=== PATIENT | male | born 1965 | race Caucasian/White ===

== ENCOUNTER 2017-05-01 07:24 | Emergency (ER) | payer BC ==
[2017-05-01 07:33] VITALS: BP 153/82; BMI 40.7
[2017-05-01] MEDS ORDERED: NS 1000 ML 1,000 ML IV ONE (08:46)
--- NOTE | 2017-05-01 08:47 | DR.GENAD ---
HPI - PCP Primary Care Physician: LIANNA ARMENDARIZ - HPI Comment HPI Comment: PATIENT HAVE FEVER ON AND OFF. HAD 13 BM YESTERDAY. NO VOMITING. - Complaint/Symptoms Chief Complaint Doctors Comments: ABDOMINAL PAIN, DIARRHEA, DECREASE URINE OUTPUT TIMES ONE WEEK. DARK STOOL TIMES 2 DAYS. Chief Complaint:: "STOMACH PAIN SEVERE CRAMPS AND DIERIA OVER A WEEK NOW" HAVING A HARD TIME URINATING ALSO. PT HAS 13 RUNNY BM YESTERDAY THEY LOOK LIKE COFFEE GROUNDS - Nurses notes reviewed Nurses Notes Review: Yes - Source History Provided: Patient - Mode of Arrival Mode of Arrival: Ambulatory - Timing Onset of Chief Complaint: 04/19/17 Came on: Gradually - Duration Duration: Constant Duration: Days - Severity Severity: Moderate PMH - PMH Past Medical History: Yes Past Medical History: Diabetes, GERD, Hypertension Past Surgical History: Yes Surgical History: Ortho Surgery Past Surgical History Comment: RIGHT SHOULDER SURGER - Family History History of Family Medical Conditions: Yes Family Medical History: Diabetes Mellitus, Cancer, Heart Failure, Hypertension - Social History Does patient currently use any type of tobacco product: Yes Have you used tobacco products in the last 12 months: Yes Type of Tobacco Use: Cigars How many years tobacco product used: 25 Does any household member use tobacco: No Alcohol Use: Rarely Do you use any recreational Drugs:: No Lives With: Family Lives Where: Home - infectious screening In the last 2 months have you had wt loss of >10#?: NO Have you had fever, night sweats or hemotysis?: No Have you traveled outside the country in the last 6 months?: No Isolation: Standard ROS - Review of Systems Constitutional: Fever, Weakness, Fatigue. negative: Chills, Diaphoresis Eyes: No Symptoms Reported. negative: Eye Pain, Discharge ENTM: negative: Ear Pain, Nose Discharge, Nose Congestion, Throat Pain Respiratoy: No Symptoms Reported. negative: Productive Cough, Non-Productive Cough, Short of Breath, Wheezing, Hemoptysis Cardiovascular: No Symptoms Reported. negative: Chest Pain, Edema, Palpitations Gastrointestinal/Abdominal: Abdominal Pain, Diarrhea Genitourinary: Other (DECREASE URINE OUTPUT.). negative: Dysuria, Frequency, Hematuria Neurological: Weakness. negative: Headache, Dizziness Musculoskeletal: Muscle Pain Integumentary: No Symptoms Reported Hematologic/Lymphatic: No Symptoms Reported Endocrine: No Symptoms Reported All Other Systems: Reviewed and Negative PE - Vital Signs Vitals: Temperature 99 F Pulse Rate 85 Respiratory Rate 20 Blood Pressure 153/82 O2 Sat by Pulse Oximetry 99 - General Limitations: No Limitations General Appearance: Alert - Head Head Exam: Normal Inspection - Eyes Eye exam: Normal Appearance - ENT ENT Exam: Normal External Ear Exam External Ear Exam: Normal External Inspection TM/Canal Exam: Bilateral Normal Nose Exam: Normal Nose Exam Mouth Exam: Normal Inspection Throat Exam: Normal Inspection - Neck Neck Exam: Trachea Midline - Chest Chest Inspection: Symmetric Chest Wall Rise - Respiratory Respiratory Exam: Normal Lung Sounds Bilat Respiratory Exam: Bilateral Clear to Auscultation - Cardiovascular Cardiovascular Exam: Regular Rate, Normal Rhythm, Normal Heart Sounds - Abdominal Exam Abdominal Exam: Normal Bowel Sounds, Soft, Tenderness Abdominal Tenderness: Diffuse, Moderate - Extremities Extremities Exam: Normal Inspection - Back Back Exam: Normal Inspection - Neurologic Neurological Exam: Alert, Oriented X3 - Psychiatric Psychiatric Exam: Normal Affect, Normal Mood - Skin Skin Exam: Dry MDM - Additional Information Additional Information Obtained From: Family - Differential Diagnosis Differential Diagnosis: ABD PAIN, DIVERTICULITIS, BOWEL OBST, GI BLEED, GASTROENTERITIS. UTI. DIARR Course - Treatment Treatment: SEE ORDERS. IV NS 1L BOLUS IN ED. - Education/Counseling Education/Counseling: Patient, Family, Education Educated On: Treatment, Diagnosis, Needs for Follow Up ROR - Labs Reviewed Laboratory Results Reviewed?: Yes Result Diagrams: 05/01/17 08:52 05/01/17 08:52 Laboratory: 05/01/17 10:55 Stool Stool Culture - Final Campylobacter Species 05/01/17 10:55 Stool - Final WBC 5.3 X10^3/uL (3.6-10.0) 05/01/17 08:52 RBC 4.33 X10^6/uL (4.7-6.0) L 05/01/17 08:52 Hgb 13.2 g/dL (13.5-18.0) L 05/01/17 08:52 Hct 37.5 % (42.0-54.0) L 05/01/17 08:52 MCV 86.8 fL (80.0-100.0) 05/01/17 08:52 MCH 30.6 pg (27.0-34.0) 05/01/17 08:52 MCHC 35.3 g/dL (33.0-35.0) H 05/01/17 08:52 RDW 13.9 % (11.6-16.5) 05/01/17 08:52 Plt Count 132 X10^3/uL (150.0-450.0) L 05/01/17 08:52 MPV 7.4 fL (7.4-11.0) 05/01/17 08:52 Neut % 70.1 % (42.0-75.0) 05/01/17 08:52 Lymph % 17.6 % (21.0-51.0) L 05/01/17 08:52 [place] % 10.6 % (0.0-13.0) 05/01/17 08:52 Eos % 1.4 % (0.9-2.9) 05/01/17 08:52 Baso % 0.3 % (0.2-1.0) 05/01/17 08:52 Neut # 3.7 x10^3/uL (2.2-4.8) 05/01/17 08:52 Lymph # 0.9 X10^3/uL (1.3-2.9) L 05/01/17 08:52 [place] # 0.6 x10^3/uL (0.3-0.8) 05/01/17 08:52 Eos # 0.1 x10^3/uL (0.0-0.2) 05/01/17 08:52 Baso # 0.0 X10^3/uL (0.0-0.1) 05/01/17 08:52 Absolute Nucleated RBC 0.0 /100WBC 05/01/17 08:52 Sodium 135 mmol/L (136-145) L 05/01/17 08:52 Corrected Sodium 138 mmol/L (136-145) 05/01/17 08:52 Potassium 3.5 mmol/L (3.5-5.1) 05/01/17 08:52 Chloride 101 mmol/L (98-107) 05/01/17 08:52 Carbon Dioxide 29.1 mmol/L (21-32) 05/01/17 08:52 BUN 10 mg/dL (7-18) 05/01/17 08:52 Creatinine 1.12 mg/dL (0.70-1.30) 05/01/17 08:52 Est GFR (MDRD) Af Amer > 60 (>60) 05/01/17 08:52 Est GFR (MDRD) Non-Af > 60 (>60) 05/01/17 08:52 Glucose 205 mg/dL (65-99) H 05/01/17 08:52 Calcium 8.3 mg/dL (8.5-10.1) L 05/01/17 08:52 Corrected Calcium 9.2 mg/dL (8.5-10.1) 05/01/17 08:52 Total Bilirubin 0.40 mg/dL (0.2-1.0) 05/01/17 08:52 AST 23 Units/L (15-37) 05/01/17 08:52 ALT 34 Units/L (12-78) 05/01/17 08:52 Alkaline Phosphatase 81 Units/L (46-116) 05/01/17 08:52 Total Protein 6.9 g/dL (6.4-8.2) 05/01/17 08:52 Albumin 2.9 g/dL (3.4-5.0) L 05/01/17 08:52 Globulin 4.0 g/dL (2.5-4.5) 05/01/17 08:52 Albumin/Globulin Ratio 0.7 Ratio (1.1-2.1) L 05/01/17 08:52 Amylase 39 Units/L (25-115) 05/01/17 08:52 Lipase 157 Units/L (73-393) 05/01/17 08:52 Stool Description 60 grams liquid 05/01/17 10:55 Stl Occult Blood (IFOB) Positive (NEGATIVE) A 05/01/17 10:55 Stool for White Cells Many (None) 05/01/17 10:55 Stl C. diff Tox B Gene Negative (NEGATIVE) 05/01/17 10:55 Stl C. diff [id number] Negative (NEGATIVE) 05/01/17 10:55 Acetone, Semi-Quant Negative (NEGATIVE) 05/01/17 08:52 - XRAY XRAY Findings: REPORT DISCUSS WITH PATIENT. - Diagnosis Discharge Problem: Bloody diarrhea Abdominal pain Qualifiers: Abdominal location: generalized Qualified Code(s): R10.84 - Generalized abdominal pain GI bleed Qualifiers: GI bleed type/associated pathology: melena Qualified Code(s): K92.1 - Melena - Discharge Plan Disposition: 01 HOME, SELF-CARE Condition: Stable Prescriptions: Acetaminophen with Codeine [Tylenol/Codeine #3 300-30 mg] 1 tab PO Q6H PRN #15 tab PRN Reason: Pain Ciprofloxacin HCl [CIPRO 500 MG TAB *] 500 mg PO Q12H #20 tab Diphenoxylate/Atropine [Lomotil] 1 tab PO TID PRN #15 tab PRN Reason: Metronidazole [Flagyl Tab 500 mg] 500 mg PO TID #30 tab Ranitidine HCl [ZANTAC TAB 150 MG *] 150 mg PO BID #60 tab - Follow ups/Referrals Follow ups/Referrals: RIC ARMENDARIZ [Primary Care Provider] - 3 days - Instructions Instructions: Bloody Diarrhea, Abdominal Pain, Adult, [id number], Gastrointestinal Bleeding, [id number] Additional Instructions: RETURN TO ED IF WORSE.
[2017-05-01] MEDS ORDERED: NS 1000 ML 1,000 ML ONE (08:59)
[2017-05-01 09:01] LABS: BASOPHILS % (AUTO) 0.3 % (0.2-1.0); EOSINOPHILS # (AUTO) 0.1 x10^3/uL (0.0-0.2); EOSINOPHILS % (AUTO) 1.4 % (0.9-2.9); HEMATOCRIT 37.5 % (42.0-54.0); HEMOGLOBIN 13.2 g/dL (13.5-18.0); LYMPHOCYTES # (AUTO) 0.9 X10^3/uL (1.3-2.9); LYMPHOCYTES % (AUTO) 17.6 % (21.0-51.0); MEAN CORPUSCULAR HEMOGLOBIN 30.6 pg (27.0-34.0); MEAN CORPUSCULAR HGB CONC 35.3 g/dL (33.0-35.0); MEAN CORPUSCULAR VOLUME 86.8 fL (80.0-100.0); MEAN PLATELET VOLUME 7.4 fL (7.4-11.0); MONOCYTES # (AUTO) 0.6 x10^3/uL (0.3-0.8); MONOCYTES % (AUTO) 10.6 % (0.0-13.0); NEUTROPHILS # (AUTO) 3.7 x10^3/uL (2.2-4.8); NEUTROPHILS % (AUTO) 70.1 % (42.0-75.0); PLATELET COUNT 132 X10^3/uL (150.0-450.0); RED BLOOD COUNT 4.33 X10^6/uL (4.7-6.0); RED CELL DISTRIBUTION WIDTH 13.9 % (11.6-16.5); WHITE BLOOD COUNT 5.3 X10^3/uL (3.6-10.0)
[2017-05-01 09:20] LABS: ALANINE AMINOTRANSFERASE 34 Units/L (12-78); ALBUMIN 2.9 g/dL (3.4-5.0); ALKALINE PHOSPHATASE 81 Units/L (46-116); AMYLASE 39 Units/L (25-115); ASPARTATE AMINO TRANSFERASE 23 Units/L (15-37); BLOOD UREA NITROGEN 10 mg/dL (7-18); CALCIUM 8.3 mg/dL (8.5-10.1); CARBON DIOXIDE 29.1 mmol/L (21-32); CHLORIDE 101 mmol/L (98-107); COR CA(FOR HYPOALB) 9.2 mg/dL (8.5-10.1); COR NA(FOR HYPERGLY) 138 mmol/L (136-145); CREATININE 1.12 mg/dL (0.70-1.30); GLUCOSE 205 mg/dL (65-99); LIPASE 157 Units/L (73-393); SODIUM 135 mmol/L (136-145); TOTAL PROTEIN 6.9 g/dL (6.4-8.2); eGFR BLACK RACES > 60 (>60); eGFR NON BLACK RACES > 60 (>60)
[2017-05-01 12:11] LABS: STOOL FOR WBC Many
--- NOTE | 2017-05-01 15:09 | RAD ---
CLINICAL HISTORY: Pain FINDINGS: Non obstructive bowel gas pattern. Degenerative changes thoracolumbar spine and hip joints Unremarkable included pulmonary parenchyma. Grossly unremarkable cardiac silhouette. IMPRESSION: Non obstructive bowel gas pattern. Reported By:
== END 2017-05-01 13:45 | disposition home or self-care (01) ==
LOC: ER 07:43
DX: K92.1 Melena (principal); R10.84 Generalized abdominal pain; R19.7 Diarrhea, unspecified; A04.5 Campylobacter enteritis
CPT/HCPCS: 36415; 74022; 80053; 82009; 82150; 82270; 83690; 85025; 87045; 87205; 87427; 87493; 87899; 96365; 99283; A4222